=== PATIENT | male | born 1940 | race Caucasian/White ===

== ENCOUNTER 2022-11-18 15:09 | Emergency (ER) | payer OTHER ==
[2022-11-18 15:29] VITALS: BP 124/75; PULSE 91; RESP 18; TEMP 99; BMI 25.1
== END 2022-11-18 16:05 | disposition left against medical advice (07) ==
LOC: FER 15:09
DX: R10.9 Unspecified abdominal pain (principal); I48.91 Unspecified atrial fibrillation
CPT/HCPCS: 99283-25; 99285-25

== ENCOUNTER 2023-01-25 06:42 | Day surgery (SDC) | payer OTHER ==
[2023-01-20 15:47] VITALS: BMI 23.6
[2023-01-25] MEDS: CYCLOPENTOLATE 2% OPHTH SOLN 2 ML BOTTLE ONE ×3 (07:20→07:30)
[2023-01-25] MEDS: TROPICAMIDE 1% OPHTH SOLN 15 ML BOTTLE ONE ×3 (07:20→07:30)
[2023-01-25] MEDS: PHENYLEPHRINE 2.5% OPTHALMIC DROP 2ML BOTTLE ONE ×3 (07:20→07:30)
[2023-01-25] MEDS: CIPROFLOXACIN HCL 0.3% OPHTH 2.5ML BOTTLE ONE ×3 (07:20→07:30)
[2023-01-25 07:25] VITALS: TEMP 97.3
[2023-01-25] MEDS ORDERED: MIDAZOLAM HCL 2 MG/2 ML SINGLE DOSE VIAL ONE (08:29)
[2023-01-25] MEDS ORDERED: ONDANSETRON 4 MG/2 ML VIAL ONE (08:35)
[2023-01-25 09:13] VITALS: RESP 18
[2023-01-25 09:38] VITALS: BP 112/66; PULSE 66
[2023-01-25] MEDS ORDERED: BSS (NA/CA/MG/K) BALANCED SALT SOLUTION OPHTH SOLN 15 ML BOTTLE ONE (11:27)
[2023-01-25] MEDS ORDERED: LIDOCAINE 1% P/F 10 MG/ML VIAL ONE (11:27)
[2023-01-25] MEDS ORDERED: TETRACAINE 0.5% OPHTH SOLN 2 ML BOTTLE ONE (11:27)
[2023-01-25] MEDS ORDERED: NEO/POLYMYX B SULF/DEXAMETH OPHTHALMIC 5ML BOTTLE ONE (11:28)
[2023-01-25] MEDS ORDERED: CARBACHOL 0.01% INTRA-OCULAR 1.5 ML VIAL ONE (11:28)
== END 2023-01-25 09:40 | disposition home or self-care (01) ==
LOC: FASU 06:42
PROVIDERS: ATTEND Ophthalmology
PROC: 08RJ3JZ Replacement of Right Lens with Synthetic Substitute, Percutaneous Approach (ICD-10-PCS; principal; 2023-01-25 08:37)
DX: H26.8 Other specified cataract (principal)
CPT/HCPCS: 66984; V2632

== ENCOUNTER 2023-02-08 06:18 | Day surgery (SDC) | payer OTHER ==
[2023-02-06 11:15] VITALS: BMI 23.6
[2023-02-08] MEDS: TROPICAMIDE 1% OPHTH SOLN 15 ML BOTTLE ONE ×3 (06:45→06:55)
[2023-02-08] MEDS: CIPROFLOXACIN HCL 0.3% OPHTH 2.5ML BOTTLE ONE ×3 (06:45→06:55)
[2023-02-08] MEDS: PHENYLEPHRINE 2.5% OPTHALMIC DROP 2ML BOTTLE ONE ×3 (06:45→06:55)
[2023-02-08] MEDS: CYCLOPENTOLATE 2% OPHTH SOLN 2 ML BOTTLE ONE ×3 (06:45→06:55)
[2023-02-08 06:51] VITALS: RESP 16
[2023-02-08] MEDS ORDERED: EPINEPHrine/PF 1 MG/1 ML (1:1,000) AMPULE ONE (07:18)
[2023-02-08] MEDS ORDERED: PHENYLEPHRINE/KETOROLAC 4 ML VIAL IO ONE (07:18)
[2023-02-08] MEDS ORDERED: LIDOCAINE 1% P/F 10 MG/ML VIAL ONE (07:18)
[2023-02-08] MEDS ORDERED: TRYPAN BLUE 0.5 ML DISP.SYRIN ONE (07:18)
[2023-02-08] MEDS ORDERED: LIDOCAINE HCL/PF 1% SDV 5ML VIAL ONE (07:18)
[2023-02-08] MEDS ORDERED: ACETYLCHOLINE 1:100 INTRA-OCUL 20 MG/2 ML KIT ONE (07:19)
[2023-02-08] MEDS ORDERED: BSS (NA/CA/MG/K) BALANCED SALT SOLUTION OPHTH SOLN 15 ML BOTTLE ONE (07:19)
[2023-02-08] MEDS ORDERED: NEO/POLYMYX B SULF/DEXAMETH OPHTHALMIC 5ML BOTTLE ONE (07:19)
[2023-02-08] MEDS ORDERED: TETRACAINE 0.5% OPHTH SOLN 2 ML BOTTLE ONE (07:19)
[2023-02-08] MEDS ORDERED: CARBACHOL 0.01% INTRA-OCULAR 1.5 ML VIAL ONE (07:19)
[2023-02-08] MEDS ORDERED: MIDAZOLAM HCL 2 MG/2 ML SINGLE DOSE VIAL ONE (08:11)
[2023-02-08 08:47] VITALS: TEMP 97.3
[2023-02-08 11:16] VITALS: BP 96/54; PULSE 58
== END 2023-02-08 09:15 | disposition home or self-care (01) ==
LOC: FASU 06:18
PROVIDERS: ATTEND Ophthalmology
PROC: 08RK3JZ Replacement of Left Lens with Synthetic Substitute, Percutaneous Approach (ICD-10-PCS; principal; 2023-02-08 08:16)
DX: H26.8 Other specified cataract (principal)
CPT/HCPCS: 66984; V2632; J1097